=== PATIENT | male | born 1990 | race Caucasian/White ===

== ENCOUNTER 2020-12-31 08:17 | Emergency (ER) | payer OTHER ==
[~2020-12-31] VITALS: Ht 182.9 cm; Wt 88.5 kg
[2020-12-31] MEDS ORDERED: AMPICILLIN/SULBAC 1.5GM VIAL IV SCH (08:34)
[2020-12-31] MEDS ORDERED: TETANUS/DIPHTHERIA TOXOID [ADULT] 0.5 ML VIAL IM ONE (09:13)
[2020-12-31] MEDS ORDERED: AMOX-429 PO (09:34)
[2020-12-31 09:40] VITALS: BP 122/74
[2020-12-31] MEDS ORDERED: NEOMY SULF/BACITRA/POLYMYXIN B 1 EACH PACKET TP ONE (09:45)
== END 2020-12-31 10:23 | disposition home or self-care (01) ==
LOC: EDH 08:17
DX: S61.511A Laceration without foreign body of right wrist, initial encounter (principal); F17.200 Nicotine dependence, unspecified, uncomplicated; Z98.52 Vasectomy status; W54.0XXA Bitten by dog, initial encounter; Y93.89 Activity, other specified; Y92.89 Other specified places as the place of occurrence of the external cause; Y99.8 Other external cause status
CPT/HCPCS: 12002; 90471; 90714; 96365; 99284; J0295